=== PATIENT | female | born 1950 | race Caucasian/White ===

== ENCOUNTER 2016-11-19 00:09 | Emergency (ER) | payer BC ==
[2016-11-19] MEDS ORDERED: Aspirin Low Dose CHEW TAB* 81 MG PO ONE (00:29)
[2016-11-19 00:49] LABS: Hematocrit 46 % (35-47); Hemoglobin 15.6 g/dl (12.0-16.0); Mean Corpuscular HGB Conc 34 g/dl (31-36); Mean Corpuscular Hemoglobin 32 pg (27-31); Mean Corpuscular Volume 95 fL (80-97); Mean Platelet Volume 10 um3 (7.4-10.4); Red Blood Count 4.91 10^6/ul (4.0-5.4); Red Cell Distribution Width 14 % (10.5-15); White Blood Count 6.9 10^3/ul (3.5-10.8)
[2016-11-19 01:03] LABS: Albumin 4.4 g/dL (3.2-5.2); BUN/Creatinine Ratio 20.8 (8-20); Calcium 10.1 mg/dL (8.6-10.3); EGFR Non-African American 58.3 (>60); Globulin 2.3 g/dL (2-4); Potassium 3.8 mmol/L (3.5-5.0); Total Protein 6.7 g/dL (6.4-8.9)
--- NOTE | 2016-11-19 04:54 | ED ---
Maryuri Nagy Anna, scribed for Wai Chamberlain MD on 11/19/16 at 0052 . HPI Chest Pain - HPI Summary HPI Summary: Patient is a 66 y/o female coming to [facility] presenting with intermittent chest discomfort that began this morning. She describes the severity of the pain as 3/ 10. The pain is not alleviated by the intake of Tums. The pain is not exacerbated by deep breaths. She denies diaphoresis, SOB, nausea, and vomiting. In 04/2016 she had localized pain around her chest, but that felt different than her current pain. Her history is significant for WPW and a heart ablation. - History of Current Complaint Chief Complaint: EDGeneral Time Seen by Provider: 11/19/16 00:25 Hx Obtained From: Patient, Family/Gamb Cutter - Accompanied by significant other Onset/Duration: Started Hours Ago, Still Present Timing: Intermittent Initial Severity: Moderate Current Severity: Moderate Pain Intensity: 3 Pain Scale Used: 0-10 Numeric Associated Signs and Symptoms: Negative: Shortness of Breath, Diaphoresis, Nausea, Vomiting - Additional Pertinent History Primary Care Physician: [id number] - Allergy/Home Medications Allergies/Adverse Reactions: Allergies Allergy/AdvReac Type Severity Reaction Status Date / Time APPLE,BLUEBERRIES Allergy ITCHY Uncoded 11/19/16 00:19 CARROTS, CELERY, RAW Allergy ITCHING, Uncoded 11/19/16 00:19 VEGETABLES ASTHMA, HIVES SEASONAL Allergy Unknown Uncoded 11/19/16 00:19 Reaction Details NARCOTIC PAIN MEDICATION AdvReac DROP IN Uncoded 11/19/16 00:19 BLOOD PRESSURE AND VOMITING PMH/Surg Hx/FS Hx/Imm Hx Endocrine/Hematology History: Denies: Hx Diabetes, Hx Thyroid Disease Cardiovascular History: Reports: Hx Angina, Other Cardiovascular Problems/ Disorders - 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- OFF FOR THE LAST 2 YRS NO P Denies: Hx Congestive Heart Failure, Hx Hypertension, Hx Pacemaker/ICD Respiratory History: Reports: Hx Asthma - HX OF IN THE PAST Denies: Hx Chronic Obstructive Pulmonary Disease (COPD) GI History: Denies: Hx Ulcer Sensory History: Reports: Hx Contacts or Glasses Denies: Hx Hearing Aid Opthamlomology History: Reports: Hx Contacts or Glasses Neurological History: Reports: Other Neuro Impairments/Disorders - 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 TONSILLECTOMY AT AGE 19. SEVERAL MODEL SET ARTIST PROCEDURES COLPOSCOPIES AND D&C 'S- [place] Hx Anesthesia Reactions: No Infectious Disease History: No Infectious Disease History: Reports: History Other Infectious Disease - guillian barre Denies: Hx Clostridium Difficile, Hx Hepatitis, Hx Human Immunodeficiency Virus (HIV), Hx of Known/Suspected MRSA, Hx Shingles, Hx Tuberculosis, Traveled Outside the [place] in Last 30 Days - Family History Known Family History: Positive: Cardiac Disease - Social History Occupation: Employed Full-time Lives: With Family Alcohol Use: Occasionally Alcohol Amount: SOCIALLY Substance Use Type: Reports: None Smoking Status (MU): Light Every Day Tobacco Smoker Type: Cigarettes Amount Used/How Often: 4-5 CIGARETTES PER NIGHT X 30 YEARS Review of Systems Negative: Skin Diaphoresis Positive: Chest Pain Negative: Shortness Of Breath Negative: Vomiting, Nausea All Other Systems Reviewed And Are Negative: Yes Physical Exam Triage Information Reviewed: Yes Vital Signs On Initial Exam: Initial Vitals Temp Pulse Resp BP Pulse Ox 97.9 F 77 16 135/85 100 11/19/16 00:10 11/19/16 00:10 11/19/16 00:10 11/19/16 00:10 11/19/16 00:10 Vital Signs Reviewed: Yes Appearance: Positive: Well-Appearing, No Pain Distress Skin: Positive: Warm Head/Face: Positive: Normal Head/Face Inspection Eyes: Positive: MANJU ENT: Positive: Hearing grossly normal Neck: Positive: Supple Respiratory/Lung Sounds: Positive: Clear to Auscultation, Breath Sounds Present Cardiovascular: Positive: RRR Abdomen Description: Positive: Nontender, Soft Bowel Sounds: Positive: Present Musculoskeletal: Positive: Strength/ROM Intact Neurological: Positive: Sensory/Motor Intact, Alert, Oriented to Person Place, Time, Normal Gait Psychiatric: Positive: Affect/Mood Appropriate Diagnostics - Vital Signs Vital Signs Temp Pulse Resp BP Pulse Ox 11/19/16 00:15 97.9 F 77 16 135/85 100 11/19/16 00:10 97.9 F 77 16 135/85 100 - Laboratory Lab Results: Lab Results 11/19/16 11/19/16 11/19/16 Range/Units 00:40 00:40 00:40 WBC 6.9 (3.5-10.8) 10^3/ul RBC 4.91 (4.0-5.4) 10^6/ul Hgb 15.6 (12.0-16.0) g/dl Hct 46 (35-47) % MCV 95 (80-97) fL MCH 32 H (27-31) pg MCHC 34 (31-36) g/dl RDW 14 (10.5-15) % Plt Count 216 (150-450) 10^3/ul MPV 10 (7.4-10.4) um3 Neut % (Auto) 55.9 (38-83) % Lymph % (Auto) 32.3 (25-47) % Haskell % (Auto) 9.9 H (1-9) % Eos % (Auto) 1.4 (0-6) % Baso % (Auto) 0.5 (0-2) % Absolute Neuts (auto) 3.9 (1.5-7.7) 10^3/ul Absolute Lymphs (auto) 2.2 (1.0-4.8) 10^3/ul Absolute Monos (auto) 0.7 (0-0.8) 10^3/ul Absolute Eos (auto) 0.1 (0-0.6) 10^3/ul Absolute Basos (auto) 0 (0-0.2) 10^3/ul Absolute Nucleated RBC 0 10^3/ul Nucleated RBC % 0.1 D-Dimer, Quantitative < 200 (Less Than 230) ng/mL Sodium 138 (133-145) mmol/L Potassium 3.8 (3.5-5.0) mmol/L Chloride 102 (101-111) mmol/L Carbon Dioxide 28 (22-32) mmol/L Anion Gap 8 (2-11) mmol/L BUN 20 (6-24) mg/dL Creatinine 0.96 H (0.51-0.95) mg/dL Est GFR ( Amer) 75.0 (>60) Est GFR (Non-Af Amer) 58.3 (>60) BUN/Creatinine Ratio 20.8 H (8-20) Glucose 114 H (70-100) mg/dL Lactic Acid (0.5-2.0) mmol/L Calcium 10.1 (8.6-10.3) mg/dL Total Bilirubin 1.00 (0.2-1.0) mg/dL AST 19 (13-39) U/L ALT 21 (7-52) U/L Alkaline Phosphatase 60 (34-104) U/L Troponin I 0.00 (<0.04) ng/mL Total Protein 6.7 (6.4-8.9) g/dL Albumin 4.4 (3.2-5.2) g/dL Globulin 2.3 (2-4) g/dL Albumin/Globulin Ratio 1.9 (1-3) 11/19/16 11/19/16 Range/Units 00:40 03:33 WBC (3.5-10.8) 10^3/ul RBC (4.0-5.4) 10^6/ul Hgb (12.0-16.0) g/dl Hct (35-47) % MCV (80-97) fL MCH (27-31) pg MCHC (31-36) g/dl RDW (10.5-15) % Plt Count (150-450) 10^3/ul MPV (7.4-10.4) um3 Neut % (Auto) (38-83) % Lymph % (Auto) (25-47) % Haskell % (Auto) (1-9) % Eos % (Auto) (0-6) % Baso % (Auto) (0-2) % Absolute Neuts (auto) (1.5-7.7) 10^3/ul Absolute Lymphs (auto) (1.0-4.8) 10^3/ul Absolute Monos (auto) (0-0.8) 10^3/ul Absolute Eos (auto) (0-0.6) 10^3/ul Absolute Basos (auto) (0-0.2) 10^3/ul Absolute Nucleated RBC 10^3/ul Nucleated RBC % D-Dimer, Quantitative (Less Than 230) ng/mL Sodium (133-145) mmol/L Potassium (3.5-5.0) mmol/L Chloride (101-111) mmol/L Carbon Dioxide (22-32) mmol/L Anion Gap (2-11) mmol/L BUN (6-24) mg/dL Creatinine (0.51-0.95) mg/dL Est GFR ( Amer) (>60) Est GFR (Non-Af Amer) (>60) BUN/Creatinine Ratio (8-20) Glucose (70-100) mg/dL Lactic Acid 0.8 (0.5-2.0) mmol/L Calcium (8.6-10.3) mg/dL Total Bilirubin (0.2-1.0) mg/dL AST (13-39) U/L ALT (7-52) U/L Alkaline Phosphatase (34-104) U/L Troponin I 0.00 (<0.04) ng/mL Total Protein (6.4-8.9) g/dL Albumin (3.2-5.2) g/dL Globulin (2-4) g/dL Albumin/Globulin Ratio (1-3) Result Diagrams: 11/19/16 00:40 11/19/16 00:40 Lab Statement: Any lab studies that have been ordered have been reviewed, and results considered in the medical decision making process. - Radiology CXR Xray Interpretation: No Acute Changes Radiology Interpretation Completed By: ED Physician - Normal CXR - EKG 0042 Cardiac Rate: NL - 62 bpm EKG Rhythm: Sinus Rhythm ST Segment: Normal Ectopy: None Re-Evaluation - Re-Evaluation First Eval Change: Improved - remains pain free, results d/w pt Chest Pain Course/Dx - Course Assessment/Plan: Patient is a 66 y/o female coming to [facility] presenting with intermittent chest discomfort that began this morning. She describes the severity of the pain as 3/10. The pain was not alleviated by the intake of Tums. The pain is not exacerbated by deep breaths. She denies diaphoresis, SOB, nausea, and vomiting. In 04/2016 she had localized pain around her chest, but that felt different than her current pain. Her history is significant for WPW and a heart ablation. The patient was given 324 mg Aspirin in the ED. Labs reveal Creatinine level of 0.96, BUN/Creatinine ratio of 20.8, glucose of 114. EKG reveals NSR at 62 bpm. CXR reveals normal chest. Initial troponin was 0.00. Repeat troponin was 0.00. Patient will be discharged with follow up from primary care physician. Patient is agreeable with plan. - Diagnoses Provider Diagnoses: Chest pain Discharge - Discharge Plan Condition: Stable Disposition: HOME Patient Education Materials: Chest Pain (ED) Referrals: Philipp Montoya MD [Primary Care Provider] - Additional Instructions: Follow up with your primary care provider within 48 hours. Return to the Emergency Department for new or worsening symptoms. The documentation as recorded by the Maryuri elliott Anna accurately reflects the service I personally performed and the decisions made by , Wai Chamberlain MD.
[2016-11-19 04:55] VITALS: BP 116/72
--- NOTE | 2016-11-19 05:57 | RAD ---
INDICATION: Chest pain COMPARISON: None 2015 TECHNIQUE: PA and lateral dual-energy views were obtained. FINDINGS: Bones/Soft Tissues: There are no acute bony findings. Cardiomediastinal: The cardiomediastinal silhouette is normal. Lungs: There are no infiltrates. Pleura: There are no pleural effusions. Other: None IMPRESSION: NO ACTIVE DISEASE.
== END 2016-11-19 04:54 | disposition home or self-care (01) ==
LOC: ED 00:09
DX: R07.9 Chest pain, unspecified (principal); F17.210 Nicotine dependence, cigarettes, uncomplicated
CPT/HCPCS: 36415; 71020; 80053; 83605; 84484; 85025; 85379; 93005; 99283; A9270-GY